=== PATIENT | female | born 1965 | race Caucasian/White ===

== ENCOUNTER 2018-07-21 23:41 | Emergency (ER) | payer BC ==
[~2018-07-21] VITALS: Ht 165.1 cm; Wt 69.9 kg
[2018-07-22 00:05] VITALS: Ht 165.1 cm; Wt 69.9 kg
[2018-07-22 01:08] VITALS: BP 116/60
== END 2018-07-22 01:08 | disposition home or self-care (01) ==
LOC: ED 23:41
DX: R33.9 Retention of urine, unspecified (principal); Z98.890 Other specified postprocedural states; Z90.710 Acquired absence of both cervix and uterus; Z86.73 Personal history of transient ischemic attack (TIA), and cerebral infarction without residual deficits; Z88.6 Allergy status to analgesic agent